=== PATIENT | female | born 1960 | race Caucasian/White ===

== ENCOUNTER 2019-11-27 14:34 | Emergency (ER) | payer MEDICARE ==
[~2019-11-27] VITALS: Ht 162.6 cm; Wt 141.8 kg
[2019-11-27 14:44] VITALS: TEMP 97.3
[2019-11-27 15:41] VITALS: BP 129/62; PULSE 63
== END 2019-11-27 15:48 | disposition home or self-care (01) ==
LOC: COL.ER 14:34
DX: S81.811A Laceration without foreign body, right lower leg, initial encounter (principal); W27.4XXA Contact with kitchen utensil, initial encounter; Y92.009 Unspecified place in unspecified non-institutional (private) residence as the place of occurrence of the external cause